=== PATIENT | male | born 1990 | race Caucasian/White ===

== ENCOUNTER 2020-05-09 20:57 | Emergency (ER) | payer BC, SELFPAY ==
[2020-05-09 21:01] VITALS: BP 142/87; PULSE 87; RESP 18; TEMP 36.8; O2SAT 99
[2020-05-09 21:33] LABS: Basophils Percent Auto 0.7 % (0.2-1.2); Eosinophils Absolute Auto 0.2 K/mm3 (0-0.3); Eosinophils Percent Auto 3.1 % (0-4.4); Hematocrit 46.2 % (42.0-52.0); Hemoglobin 15.5 g/dL (14.0-18.0); Immature Granulocyte Absolute 0.01 K/mm3 (0.00-0.031); Immature Granulocyte Percent A 0.2 % (0-0.5); Lymphocytes Absolute Auto 2.18 K/mm3 (0.9-3.2); Lymphocytes Percent Auto 37.4 % (18.3-44.2); Mean Corpuscular HGB Conc 33.5 g/dl (32-36); Mean Corpuscular Hemoglobin 28.9 pg (26-34); Monocytes Absolute Auto 0.4 K/mm3 (0.1-0.6); Monocytes Percent Auto 6.3 % (2.6-8.5); Neutrophils Absolute Auto 3.1 K/mm3 (1.3-6.7); Neutrophils Percent Auto 52.3 % (45.5-73.1); Platelet Count Result 244 k/mm3 (150-375); Red Blood Count 5.37 M/mm3 (4.6-6.20); Red Cell Distribution Width 12.7 % (11.5-14.5); White Blood Count 5.8 K/mm3 (4.5-10.0)
[2020-05-09 21:40] LABS: Add Urine Microscopic? YES; Appearance Urine Clear (Clear); Bilirubin Urine Negative (Negative); Blood Urine Negative (Negative); Color Urine Straw (Yellow); Glucose Urine UA Negative (Negative); Ketones Urine Negative (Negative); Leukocyte Esterase Ur Trace LEU/UL (Negative); Mucus Urine Rare /lpf; Nitrate Urine Negative (Negative); Protein Urine Negative (Negative); RBC Urine 0-2 /hpf (0-2); Squamous Epithelial Cell Urine Rare /hpf (Few); Urobilinogen Urine Negative mg/dL (<2.0); WBC Urine 16-20 /hpf
[2020-05-09 21:46] LABS: Alanine Aminotransferase 19 U/L (4-50); Albumin Level 4.9 g/dL (3.5-5.1); Alkaline Phosphatase 34 U/L (38-126); Anion Gap 11 mmol/L (8-16); Aspartate Amino Transferase 22 U/L (17-59); Bilirubin,Total 0.3 mg/dL (0.2-1.3); Blood Urea Nitrogen 14 mg/dL (9-20); Calcium 9.5 mg/dL (8.4-10.2); Carbon Dioxide 27 mmol/L (22-30); Chloride 104 mmol/L (98-107); Estimated CRCL calculation 119 ml/min; Estimated Glomerular Filt Rate > 60; Glucose 101 mg/dL (75-110); Sodium 142 mmol/L (137-145)
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
[2020-05-09 21:51] LABS: Amphetamine Screen Urine Negative (Negative); Barbiturate Screen Urine Negative (Negative); Benzodiazepines Screen Urine Negative (Negative); Cannabinoid Screen Urine Negative (Negative); Cocaine Screen Urine Negative (Negative); Methadone Screen Urine Negative (Negative); Opiate Screen Urine Negative (Negative); Phencyclidine Screen Urine Negative (Negative)
[2020-05-09 22:16] VITALS: BP 130/83; PULSE 66; RESP 16; TEMP 36.8; O2SAT 100
[2020-05-09 22:34] LABS: Ethanol 67 mg/dL (<10)
[2020-05-10] VITALS (7 sets, daily range): BP systolic 110–151; BP diastolic 65–95; PULSE 65–79; RESP 16–18; TEMP 36.7; O2SAT 97–100
--- NOTE | 2020-05-10 01:41 | PC.NURSE ---
metalworker Trinidad and this RN into pt. room to inform him that he will me admitted to a psychiatric facility. Pt states This is ridiculous that I have to stay because of a statement that was taken out of context.
--- NOTE | 2020-05-10 03:03 | PC.NURSE ---
Pt. accepted at [facility].
--- NOTE | 2020-05-10 05:38 | PC.NURSE ---
Report to Salty, RN
--- NOTE | 2020-05-10 05:52 | PC.NURSE ---
Pt. accepted at [facility] by Dr. Quinonez. Pt. bed number is [id number]
--- NOTE | 2020-05-10 07:15 | PC.NURSE ---
Pt is on phone. This RN unable to obtain vitals or introduce myself at this time.
--- NOTE | 2020-05-10 07:44 | PC.NURSE ---
This RN into pts room. Pt is compliant and states he is not having thoughts of harming himself or others at this time. Pt requested a breakfast tray.
--- NOTE | 2020-05-10 10:10 | PC.NURSE ---
Trinidad from [facility] called checking on status of pts COVID test. Informed her that we are still waiting. Trinidad requested that we see if we can expedite the results. I informed her i would pass this along to charge nurse. Charge nurse Vee was made aware of Trinidad request.
--- NOTE | 2020-05-10 17:54 | PC.NURSE ---
Called Celia back from [facility]. She was injuring about pts status. Informed her that we are waiting for COVID results. Will let her know when results are in.
--- NOTE | 2020-05-10 19:58 | PC.NURSE ---
[facility] called asking for covid results, still not resulted. They states to call back when it is back
[2020-05-10 20:53] LABS: SARS-CoV-2 RNA PCR Negative
--- NOTE | 2020-05-10 22:59 | PC.NURSE ---
[facility] accepted transfer ETA 01:00 Trip # [id number]
--- NOTE | 2020-05-11 01:31 | PC.NURSE ---
[facility] updated time for transport 0200
[2020-05-11 04:02] VITALS: BP 128/76; PULSE 70; RESP 18; O2SAT 100
== END 2020-05-11 04:02 ==
PROVIDERS: Emergency Medicine; Emergency Provider Emergency Medicine
DX: R45.851 Suicidal ideations (principal)
CPT/HCPCS: 36415; 80053; 80307; 81001; 84443; 85025; 87086; 99285; C9803; U0003; U0005

== ENCOUNTER 2021-02-10 17:04 | Emergency (ER) | payer BC, SELFPAY ==
--- NOTE | ~2021-02-10 | XR_ITS ---
EXAMINATION: XR chest 1V portable DATE: 02/10/2021 19:59 INDICATION: Cough and fever. TECHNIQUE: A single frontal view of the chest was obtained. COMPARISON: None. FINDINGS: There are mild airspace opacities in right lower lung zone and left mid and lower lung zone s. No pleural effusion or pneumothorax. The heart size is normal. IMPRESSION: 1. Mild airspace opacities in right lower lung zone and left mid and lower lung zones suspicious for atypical pneumonia such as COVID-19 pneumonia. Reviewed, dictated and finalized at location A. [facility]
[2021-02-10 17:24] VITALS: BP 153/95; PULSE 108; RESP 20; TEMP 37.3; O2SAT 99
--- NOTE | 2021-02-10 19:35 | ECG_ITS ---
Measurements Intervals [place] Rate: 91 P: 31 CO: 151 QRS: 24 QRSD: 99 T: 12 QT: 354 QTc: 436 Interpretive Statements SINUS RHYTHM BORDERLINE R WAVE PROGRESSION, ANTERIOR LEADS BORDERLINE T WAVE ABNORMALITY- INFERIOR LEADS BASELINE ARTIFACT- III, AVR, AVF, V2 BORDERLINE ECG Electronically Signed On 02-11-2021 6:06:32 [employer]ATOR REPAIRER by Fidencio Tariq D.O.
--- NOTE | 2021-02-10 19:43 | ED.GENADULT ---
HPI - General Adult General Chief complaint: Upper Respiratory Infection Stated complaint: uri/fever/left flank pain Time Seen by Provider: 02/10/21 19:23 History of Present Illness HPI narrative: Patient 30-year-old gentleman who presents the emergency department with chief complaint of fever body aches and myalgias. Patient states that for the last several days has had fever up to 103 at home reports that he had body aches and reports that he had pain in his right flank area. Patient denies dysuria denies blood in his urine denies prior history of kidney stones patient reports has not been vaccinated for COVID-19 reports has not previously had COVID-19 reports that he also had a sore throat and little bit of a runny nose with this as well. Related Data Allergies Allergy/AdvReac Type Severity Reaction Status Date / Time No Known Allergies Allergy Verified 02/10/21 20:19 Review of Systems Review of Systems: A 10 system review of systems was completed on the patient and is negative except for what is stated in the HPI. Nursing and ancillary documentation was reviewed. [facility] Past Medical History Medical History Healthy adult male Social History Social History Gender identity (if verbalized by the patient): Male Sexual Orientation (if Verbalized by the Patient): Straight or Heterosexual Exam Narrative: GENERAL: Well-appearing, well-nourished, and in no acute distress. HEAD: Normocephalic, atraumatic. EYES: PERRLA and EOMI. ENT: Nares clear, no rhinorrhea or epistaxis. Mucous membranes moist. NECK: Supple. CHEST: Clear to auscultation. No respiratory distress. HEART: Regular rate and rhythm. No murmur heard. Normal peripheral pulses. ABDOMEN: Soft, nontender, nondistended, normal active bowel sounds. EXTREMITIES: Normal range of motion. No edema. SKIN: Warm, dry, no rash. NEURO: No focal deficits. Alert and oriented x3. PSYCH: Normal mood and affect. Course Vital Signs Vital signs: Vital Signs Temperature 37.3 C 02/10/21 17:24 Pulse Rate 108 H 02/10/21 17:24 Respiratory Rate 20 02/10/21 17:24 Blood Pressure 153/95 H 02/10/21 17:24 Pulse Oximetry 99 02/10/21 17:24 Temperature 37.3 C 02/10/21 17:24 Pulse Rate 108 H 02/10/21 17:24 Respiratory Rate 20 02/10/21 17:24 Blood Pressure 153/95 H 02/10/21 17:24 Pulse Oximetry 99 02/10/21 20:18 Medical Decision Making Vital Signs Vital Signs: Vital Signs Temperature 37.3 C 02/10/21 17:24 Pulse Rate 108 H 02/10/21 17:24 Respiratory Rate 20 02/10/21 17:24 Blood Pressure 153/95 H 02/10/21 17:24 Pulse Oximetry 99 02/10/21 17:24 Temperature 37.3 C 02/10/21 17:24 Pulse Rate 108 H 02/10/21 17:24 Respiratory Rate 20 02/10/21 17:24 Blood Pressure 153/95 H 02/10/21 17:24 Pulse Oximetry 99 02/10/21 20:18 Lab Data Result diagrams: 02/10/21 20:13 02/10/21 20:13 Labs: Lab Results 02/10/21 02/10/21 02/10/21 Range/Units 20:13 20:13 20:13 WBC 4.3 L (4.5-10.0) K/mm3 RBC 5.04 (4.6-6.20) M/mm3 Hgb 15.2 (14.0-18.0) g/dL Hct 45.4 (42.0-52.0) % MCV 90.1 (80-100) fl MCH 30.2 (26-34) pg MCHC 33.5 (32-36) g/dl RDW 12.9 (11.5-14.5) % Plt Count 170 (150-375) k/mm3 MPV 10.5 H (7.4-10.4) fl Immature Gran % (Auto) 0.2 (0-0.5) % Neut % (Auto) 63.0 (45.5-73.1) % Lymph % (Auto) 26.5 (18.3-44.2) % Nobles % (Auto) 8.5 (2.6-8.5) % Eos % (Auto) 1.6 (0-4.4) % Baso % (Auto) 0.2 (0.2-1.2) % Lymph # (Auto) 1.13 (0.9-3.2) K/mm3 Nobles # (Auto) 0.4 (0.1-0.6) K/mm3 Eos # (Auto) 0.1 (0-0.3) K/mm3 Baso # (Auto) 0.0 (0.0-0.1) K/mm3 Abs Immat Gran (auto) 0.01 (0.00-0.031) K/mm3 Absolute Neuts (auto) 2.7 (1.3-6.7) K/mm3 Absolute Nucleated RBC 0.0 (0.0-0.012) K/mm3
[2021-02-10] MEDS: KETOROLAC 30 MG/ML VIAL (*BKC) IV PUSH (20:02)
[2021-02-10] MEDS: SODIUM CHLORIDE 0.9% IV 1,000 ML 999 ML IV CONT (20:02)
[2021-02-10 20:18] VITALS: O2SAT 99
[2021-02-10 20:20] LABS: Basophils Percent Auto 0.2 % (0.2-1.2); Eosinophils Absolute Auto 0.1 K/mm3 (0-0.3); Eosinophils Percent Auto 1.6 % (0-4.4); Hematocrit 45.4 % (42.0-52.0); Hemoglobin 15.2 g/dL (14.0-18.0); Immature Granulocyte Absolute 0.01 K/mm3 (0.00-0.031); Immature Granulocyte Percent A 0.2 % (0-0.5); Lymphocytes Absolute Auto 1.13 K/mm3 (0.9-3.2); Lymphocytes Percent Auto 26.5 % (18.3-44.2); Mean Corpuscular HGB Conc 33.5 g/dl (32-36); Mean Corpuscular Hemoglobin 30.2 pg (26-34); Mean Corpuscular Volume 90.1 fl (80-100); Mean Platelet Volume 10.5 fl (7.4-10.4); Monocytes Absolute Auto 0.4 K/mm3 (0.1-0.6); Monocytes Percent Auto 8.5 % (2.6-8.5); Neutrophils Absolute Auto 2.7 K/mm3 (1.3-6.7); Platelet Count Result 170 k/mm3 (150-375); Red Blood Count 5.04 M/mm3 (4.6-6.20); Red Cell Distribution Width 12.9 % (11.5-14.5); White Blood Count 4.3 K/mm3 (4.5-10.0)
[2021-02-10 20:26] LABS: Add Urine Microscopic? YES; Appearance Urine Cloudy (Clear); Bacteria Urine Trace /hpf; Bilirubin Urine Negative (Negative); Blood Urine Negative (Negative); Color Urine Amber (Yellow); Glucose Urine UA Negative (Negative); Ketones Urine Negative (Negative); Leukocyte Esterase Ur Negative LEU/UL (Negative); Mucus Urine Moderate /lpf; Nitrate Urine Negative (Negative); Protein Urine 1+ mg/dL (Negative); RBC Urine 0-2 /hpf (0-2); Squamous Epithelial Cell Urine Rare /hpf (Few); Urobilinogen Urine Negative mg/dL (<2.0); WBC Urine 0-3 /hpf
[2021-02-10 20:34] LABS: Specific Grav Ur 1.032 (1.001-1.035)
[2021-02-10 20:53] LABS: Alanine Aminotransferase 37 U/L (4-50); Albumin Level 5.1 g/dL (3.5-5.1); Alkaline Phosphatase 38 U/L (38-126); Anion Gap 13 mmol/L (8-16); Aspartate Amino Transferase 35 U/L (17-59); Bilirubin,Total 0.5 mg/dL (0.2-1.3); Blood Urea Nitrogen 17 mg/dL (9-20); Calcium 9.5 mg/dL (8.4-10.2); Carbon Dioxide 24 mmol/L (22-30); Chloride 100 mmol/L (98-107); Estimated CRCL calculation 115 ml/min; Estimated Glomerular Filt Rate > 60; Glucose 105 mg/dL (65-110); Sodium 137 mmol/L (137-145)
[2021-02-10 20:54] LABS: Lactic Acid Reflex 1.1 mmol/L (0.7-2.1)
[2021-02-10 21:32] VITALS: BP 136/78; PULSE 76; RESP 19; O2SAT 99
[2021-02-11 18:23] LABS: SARS-CoV-2 RNA PCR Positive
== END 2021-02-10 21:33 | disposition home or self-care (01) ==
PROVIDERS: Emergency Provider Emergency Medicine
DX: U07.1 COVID-19 (principal); J12.82 Pneumonia due to coronavirus disease 2019
CPT/HCPCS: 36415; 71045; 80053; 81001; 83605; 85025; 87804; 87880; 93005; 96361; 96374; 99284; C9803; J1885; J7030; U0003; U0005